=== PATIENT | female | born 1955 | race Caucasian/White ===

== ENCOUNTER 2021-04-11 17:17 | Emergency (ER) | payer OTHER ==
[2021-04-11 17:27] VITALS: BP 151/59; PULSE 83; TEMP 97.8; BMI 30.1
[2021-04-11] MEDS ORDERED: ACETAMINOPHEN 500 MG TABLET (FP) PO ONE (17:36)
[2021-04-11] MEDS ORDERED: ACETAMINOPHEN 500 MG TABLET (FP) ONE (17:39)
== END 2021-04-11 19:08 | disposition home or self-care (01) ==
LOC: FER 17:17
DX: M25.561 Pain in right knee (principal)
CPT/HCPCS: 73562-TC-RT-FY; 93971-TC; 99284-25